=== PATIENT | female | born 1990 | race American Indian/Alaskan Native ===

== ENCOUNTER 2018-04-05 10:35 | Emergency (ER) | payer MEDICAID ==
[2018-04-05 10:42] VITALS: BP 113/82; PULSE 57; RESP 18; TEMP 98.2; O2SAT 98
--- NOTE | 2018-04-05 11:17 | C.PDOC ---
History Of Present Illness Patient complains of generalized bodyaches, malaise, nausea, frontal headache with associated nasal congestion for 2 days. Patient reports possible sick contacts at work. Denies documented fever, vomiting, diarrhea, chest pain, SOB, urinary symptoms. Time Seen by Provider: 04/05/18 11:04 Chief Complaint (Nursing): Flu-like Symptoms History Per: Patient History/Exam Limitations: no limitations Onset/Duration Of Symptoms: Days (2) Current Symptoms Are (Timing): Still Present Location Of Pain: Sinus/es, Diffuse Myalgias, Headache Sick Contacts (Context): Individual(s) At Work Past Medical History Reviewed: Historical Data, Nursing Documentation, Vital Signs Vital Signs: Last Vital Signs Temp 98.2 F 04/05/18 10:40 Pulse 57 L 04/05/18 10:40 Resp 18 04/05/18 10:40 BP 113/82 04/05/18 10:40 Pulse Ox 98 04/05/18 10:40 - Medical History PMH: No Chronic Diseases Surgical History: No Surg Hx Family History: States: Unknown Family Hx - Social History Hx Alcohol Use: Yes Hx Substance Use: No - Immunization History Hx Tetanus Toxoid Vaccination: No Hx Influenza Vaccination: No Hx Pneumococcal Vaccination: No Review Of Systems Constitutional: Positive for: Weakness, Malaise. Negative for: Chills, Sweats, Weight loss Eyes: Negative for: Vision Change, Redness ENT: Negative for: Ear Pain, Throat Pain Gastrointestinal: Negative for: Abdominal Pain Genitourinary: Negative for: Dysuria Skin: Negative for: Rash Neurological: Positive for: Headache. Negative for: Dizziness Physical Exam - Physical Exam Appears: Non-toxic, No Acute Distress Skin: Warm, Dry Head: Atraumatic, Normacephalic Eye(s): bilateral: Normal Inspection, EOMI Ear(s): Bilateral: Normal (no erythema) Nose: No Flaring, No Discharge, Other (congestion) Oral Mucosa: Moist Tongue: Normal Appearing, No Swelling, No Lesions Lips: Normal Appearing, No Swelling, No Lesions Throat: Normal, No Erythema, No Exudate, No Drooling, No Mass Neck: Normal ROM, Supple Lymphatic: Normal Exam, No Adenopathy Chest: Symmetrical Cardiovascular: Rhythm Regular, No Murmur Respiratory: Normal Breath Sounds, No Accessory Muscle Use, No Rales, No Rhonchi, No Wheezing Extremity: Bilateral: Atraumatic, Normal ROM Pulses: Left Radial: Normal Neurological/Psych: Oriented x3, Normal Speech Gait: Steady ED Course And Treatment O2 Sat by Pulse Oximetry: 98 Pulse Ox Interpretation: Normal Medical Decision Making Medical Decision Making: Patient with complaints of multiple symptoms 2 day onset, likely viral. Physical examination did not reveal any acute findings. Patient had no fever and in no respiratory distress. Vital signs stable. No nuchal rigidity or neuro deficits. No signs of dehydration. Patient is stable for discharge. Recommend supportive treatment for symptom relief of viral illness. Advise rest and fluids and to follow up with PMD or clinic in few days. If symptoms do not resolve in 5 days will need re-eval. Disposition Counseled Patient/Family Regarding: Diagnosis, Need For Followup, Rx Given - Disposition Referrals: [facility] [Outside] [facility] [Outside] [facility] [Outside] Disposition: HOME/ ROUTINE Disposition Time: 11:21 Condition: GOOD Additional Instructions: You have viral infection. Take Tylenol or Motrin alternating every 4-6 hours for Fever 100.4F or higher. Rest and drink plenty of fluids. May use cool mist humidifier or vaporizer in room. Try taking over the counter antihistamine (Claritin, Taryn, Zyrtec), Decongestant or Cough medicine (Mucinex) as needed every 6-8 hours. Follow up with your primary medical doctor or clinic in 1 week for further evaluation. Prescriptions: Ondansetron ODT [Zofran ODT] 1 odt PO BID PRN #6 odt PRN Reason: Nausea/Vomiting Phenylephrine/Dm/Acetaminop/GG [Sudafed PE Pressure+Pain+Cold] 1 each PO Q8 #24 tablet Instructions: Adenovirus Infections Forms: [facility] ([place]ian), Work Excuse - POA Present On Arrival: None - Clinical Impression Clinical Impression: Influenza-like illness, Viral illness
== END 2018-04-05 11:33 | disposition home or self-care (01) ==
LOC: C.ER 10:35
DX: J11.1 Influenza due to unidentified influenza virus with other respiratory manifestations (principal)